=== PATIENT | female | born 1975 | race Caucasian/White ===

== ENCOUNTER → 2022-01-06 10:24 | Outpatient (CLI) | payer BC, SELFPAY ==
--- NOTE | ~2022-01-06 | XR_ITS ---
XR hand RT min 3V DATE: 01/06/2022 10:42 INDICATION: Third metacarpal and third digit intermittent chest pain for weeks TECHNIQUE: 3 views COMPARISON: None FINDINGS: No fracture or dislocation, periosteal reaction or bone destruction, erosive change or sandeep drocalcinosis. Joint spaces are relatively well preserved. IMPRESSION: Negative Reviewed, dictated and finalized at location A. IMPRESSION: Negative
== END ==
PROVIDERS: PCP Physician Assistant; Visit Provider Physician Assistant
DX: M79.641 Pain in right hand (principal)
CPT/HCPCS: 73130

== ENCOUNTER 2023-10-03 00:57 | Day surgery (SDC) | payer BC, SELFPAY ==
[2023-09-23 11:40] VITALS: BMI 30.7
--- NOTE | 2023-09-23 11:46 | PC.NURSE ---
Report to the Outpatient Waiting Room, entrance under the green pavilion located off [facility], at time 0630 on date 10/03/23. Planned Procedure Time: 0830. Time changes happen often and if your time is changed the preop area will call you the afternoon before. - You and your visitor will be asked to self-screen and do not enter if you have any COVID symptoms. - A mask is optional within the hospital at this time. Patients may have clear liquids (water, carbonated beverages, clear teas, apple juice) until 3 hours prior to surgery with a maximum of 20 ounces. - No food from midnight until time of surgery Take the following medications with a SIP of water the morning of surgery: NONE DO NOT STOP ANY OF YOUR OTHER PRESCRIPTION MEDICATIONS PRIOR TO SURGERY ?EXCEPT THE FOLLOWING Medications to discontinue per physician: N/A Date to take last dose: N/A Please no make-up, nail kinyarwanda, hairspray, perfume, deodorant, or body powder the day of surgery. No jewelry (including any body piercings) or valuables the day of surgery, leave them at home. Please take a shower or bath the night before, or the morning of, surgery with an antibacterial soap. Wear comfortable, loose fitting clothing. - Jewelry must be removed prior to entering the operating room. Rings and piercings that are not removed may be cut off. - The hospital will not accept responsibility for valuables. - Please leave all valuables, including medications, at home the day of surgery. If you are going home after surgery, a licensed driver education instructor must drive you home. - NO public transportation without another adult if you receive anesthesia. - We recommend that an adult stay with you for 24 hours following discharge. - We also recommend that you do not drive, make important decision, drink alcoholic beverages, or take any drugs that were not prescribed by your health care provider for at least 24 hours after your discharge time. Follow any additional instructions given to you from your surgeon. If you or anyone in your household have experienced Covid symptoms in the past week, please notify your surgeon or the nurse liaison at the phone number below for possible testing. Telephone instructions given to PT - DEBRA PATTERSON and asked if any additional questions and then verbalized understanding. Patient advised to call surgeon office or pre surgery nurse liaison [phone] if any additional questions.
--- NOTE | 2023-09-28 13:41 | PM.IMHP ---
H&P: HPI History of Present Illness Date/Time: 09/28/23 13:41 Chief Complaint: Triggering right 3rd finger. She has had previous release done elsewhere. Narrative: Patient has catching locking and pain right 3rd finger. She has had release done elsewhere. I have told her is no guarantee I can completely get rid of the catching however I am get reasonable to look in release the A1 edin to make sure there is nothing else causing her problems. Review of Systems Musculoskeletal: Musculoskeletal: Reports arthralgias and Reports joint swelling PMF Past Medical History Medical History (Updated 08/31/23 @ 10:28 by Reece Arrington MD) PCOS (polycystic ovarian syndrome) Surgical History Surgical History (Updated 08/31/23 @ 09:56 by Olivia Wells CMA) History of cholecystectomy History of ear surgery History of hand surgery right middle finger trigger release- 07/2022 Family History Family History (Updated 08/31/23 @ 09:57 by Olivia Wells CMA) Other Cancer Diabetes mellitus Kidney disease Social History Social History (Updated 08/31/23 @ 09:57 by Olivia Wells CMA) Smoking status: Never smoker Alcohol intake: current Drinks per week: 2 Alcohol use details: socially Substance use: never Substance use type: does not use Do You Feel Safe in your Home?: Yes Lack of Transportation: No Lack of Food: Never True Current Housing: I Have Housing Concerned About Future Housing: No Difficulty Paying Gas/Electric Bills: No Difficulty Paying for Meds: No Currently Unemployed: No Education: High School Diploma/GED Difficulty w/ Childcare or Family Care: No Living arrangements: with family Occupation/Education: occupation 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 The is well-healed surgical incision. Despite the fact she has had surgery she appears to recurrence of her trigger finger. Const: General: no acute distress Eyes: General: appearance normal, both eyes and all related structures Neck: Neck: supple Resp: Effort & Inspection: normal respiratory effort Cardio: Rate: regular rate Rhythm: regular rhythm Assessment and Plan Assessment and plan (1) Trigger finger, right middle finger: Code(s): M65.331 - Trigger finger, right middle finger Status: Acute Assessment and Plan: Patient has catching locking right 3rd finger. She has had a previous release. I told her with the previous release is no guarantee she will get better with surgery. She is well aware this would like to see if anything can be done. I told her mother to take a look and release it. If it does get better she probably have to live with what she has. I discussed this risks benefits limitations and alternatives in detail.
[2023-10-03] MEDS: ACETAMINOPHEN 500 MG TABLET 1000 MG PO (06:32)
[2023-10-03] MEDS: KETOROLAC 15 MG/ML VIAL (*BKC) IV PUSH (06:33)
[2023-10-03 06:42] VITALS: BP 134/55; PULSE 74; RESP 16; TEMP 36.3; O2SAT 100; BMI 30.2
[2023-10-03] MEDS: LACTATED RINGERS 1,000 ML 30 ML IV CONT (06:56)
--- NOTE | 2023-10-03 07:16 | P.PNAN_ITS ---
Anes - Initial Pre Proc Eval Procedure: Operation Date: 10/03/23 07:30 Proposed Procedures p Right third Trigger Finger Release - Reece Arrington MD Date/Time: 10/03/23 07:16 Surgeon: Reece Arrington MD Pre Op Diagnosis: Rt Trigger Middle Finger Patient Data Age: 48 Gender: F Height: 1.7 m Weight: 87.45 kg Last Vital Signs Temp 36.3 C L 10/03/23 06:42 Pulse 74 10/03/23 06:42 Resp 16 10/03/23 06:42 BP 134/55 L 10/03/23 06:42 Pulse Ox 100 10/03/23 06:42 O2 Del Method Room Air 10/03/23 06:42 Allergies Allergy/AdvReac Type Severity Reaction Status Date / Time Sulfa (Sulfonamide Allergy Mild HIVES Verified 09/23/23 11:39 Antibiotics) Home Medications Medication Instructions Recorded Confirmed Type estradiol 1 mg tablet 1 mg PO DAILY 08/31/23 10/03/23 History medroxyprogesterone 150 mg/mL 150 mg IM [id number] 09/23/23 10/03/23 History intramuscular syringe Patient hx anesthesia problems: none Family hx anesthesia problems: none Results Review: All pre-operative results and documents have been reviewed as part of the pre- operative evaluation. [facility]LY [facility] Past Medical History Medical History (Updated 10/03/23 @ 07:16 by Roberto Andrew MD) Obesity PCOS (polycystic ovarian syndrome) Surgical History Surgical History History of cholecystectomy History of ear surgery History of hand surgery right middle finger trigger release- 07/2022 Family History Family History Other Cancer Diabetes mellitus Kidney disease Social History Social History Smoking status: Never smoker Alcohol intake: current Drinks per week: 2 Alcohol use details: socially Substance use: never Substance use type: does not use Do You Feel Safe in your Home?: Yes Lack of Transportation: No Lack of Food: Never True Current Housing: I Have Housing Concerned About Future Housing: No Difficulty Paying Gas/Electric Bills: No Difficulty Paying for Meds: No Currently Unemployed: No Education: High School Diploma/GED Difficulty w/ Childcare or Family Care: No Living arrangements: with family Occupation/Education: occupation 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 Informed Consent: The patient's anesthetic plan and its attendant risks and benefits were discussed with the patient/family/POA. Questions were solicited and answers provided to the satisfaction of the patient/family/POA.
--- NOTE | 2023-10-03 08:38 | WPDHPUPDATE1 ---
History and Physical Update Update Date/Time: 10/03/23 08:38 History and Physical has been reviewed, including an updated exam of the patient. There are NO changes in the patient's condition. Risks, benefits, and alternatives have been discussed and questions answered. Patient agrees to proceed with procedure.
[2023-10-03] MEDS: ceFAZolin 2 GM/D5W 50 ML 2 GM/50 ML BAG IVPB (08:43)
[2023-10-03] MEDS: LIDOCAINE HCL 1% LOCAL INJ 20 ML VIAL INFILTRATE (09:01)
--- NOTE | 2023-10-03 09:13 | W.PM.PROC2 ---
Procedure Note - Detailed Date of Procedure 10/03/23 Pre-op Diagnosis Rt Trigger Middle Finger Post-op Diagnosis Same Procedure Performed Release A1 Edin Surgeon Reece Arrington MD Anesthesia General Description of Procedure Patient brought to operating room 9. General anesthetic was administered. Local infiltrate placed along the line of intended incision after sterile prep and drape. Dissection carried down through the skin and then bluntly dissected to the A1 edin and tendon. There were few bands left restricting the excursion of the A1 edin these were released under direct vision this point I pulled the tendon up and complete release was obtained. I found no further triggering of the finger. During the case the neurovascular bundles were carefully protected. Then proceeded with irrigation and hemostasis and closed with 3-0 Prolene. Sterile dressing applied patient tolerated procedure well. Packing No Pathology None sent Complications No immediate complications [facility] [place] Billing Surgery - Charge Forward: Surgery Billing (Right 3rd Trigger Finger [id number])
[2023-10-03 09:21] VITALS: BP 106/47; PULSE 79; RESP 16; O2SAT 96
[2023-10-03 09:50] VITALS: BP 108/57; PULSE 67; RESP 16; O2SAT 97
[2023-10-03] MEDS: oxyCODONE HCL (*CRX) 5 MG TAB IR PO (10:08)
[2023-10-03 10:20] VITALS: BP 116/73; PULSE 66; RESP 16
[2023-10-03 10:35] VITALS: BP 110/60; PULSE 72; RESP 16
== END 2023-10-03 10:50 | disposition home or self-care (01) ==
PROVIDERS: Visit Provider Orthopaedic Surgery
PROC: (CPT 26055; principal; 2023-10-03 07:30)
DX: M65.331 Trigger finger, right middle finger (principal); E28.2 Polycystic ovarian syndrome; E66.9 Obesity, unspecified; Z68.30 Body mass index [BMI] 30.0-30.9, adult; Z90.49 Acquired absence of other specified parts of digestive tract; Z98.890 Other specified postprocedural states; Z80.9 Family history of malignant neoplasm, unspecified
CPT/HCPCS: 26055; A9270; J0690; J1885; J2250; J2405; J2704; J3010; J7120

== ENCOUNTER 2024-01-19 08:00 | Outpatient (RCR) | payer BC, SELFPAY ==
--- NOTE | 2023-10-27 09:12 | OTOPEVAL1 ---
Assessment and note entered by Thomas Maya, JULIUS/Natasha, GIACOMO Evaluation Information 10/27/23 Assessment Status Evaluation Diagnosis Trigger finger, right middle finger Subjective Information s/p release 10/03/23. This is her second release. The first was done Jul 2022. She reports residual stiffness, difficulties making a fist and fully extending the finger. 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 She reports she tries to use the finger as much as possible. Intermittent pain, describes surgery site tenderness , on/off inflammation which is more uncomfortable than painful. Assessment OT Clinical Summary Patient referred to OT s/p right middle finger trigger finger release. She presents with residual tenderness, stiffness, and weakness that restricts return to gripping activities during ADLs. 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 Plan of Care Interventions Therapeutic Exercise,Manual Therapy,Therapeutic Activities,Hot Pack/Cold Pack,Ultrasound,Paraffin OT Services Indicated Yes Treatment Frequency and 1x/week for 6 weeks Duration These treatments will address the objective and functional deficits as defined above. The patient will be advanced safely and appropriately in order for the patient to progress towards his/her prior level of function. Additional exercises will be introduced and as well as a comprehensive home exercise program upon discharge, if needed, ?to ensure carryover of functional gains achieved in the clinic. This treatment plan has been reviewed and agreement upon by the patient.
--- NOTE | 2023-10-27 09:12 | OPREHPOC ---
Outpatient Therapy Plan of Care This is a Multidisciplinary Plan of Care that may contain components documented by all disciplines (PT, OT, and ST.) OT Problem 1 OT Problem #1 Knowledge Deficit OT Goal 1 Goal 1. Patient to be independent with instructed materials. Target Visit 6 OT Problem 2 OT Problem #2 Impaired Range of Motion OT Goal 1 Goal 1. Patient to increase functional ROM of the right hand as demonstrated by improved hook fist, measuring <1 cm gap between the middle finger tip and the DPC. OT Problem 3 OT Problem #3 Impaired Strength OT Goal 1 Goal 1. Patient to be able to complete putty HEP with at least yellow putty x5 minutes without reports of pain or clicking . Target Visit 6
--- NOTE | 2023-11-07 10:26 | PCOTNOTE ---
Patient did not show up for scheduled appointment this date. Called patient who reports she forgot about her appointment.
--- NOTE | 2023-11-24 15:59 | OTOPPROG ---
Assessment and note entered by Thomas Maya, JULIUS/Natasha, CHT Progress Update 11/24/23 Diagnosis Trigger finger, right middle finger Onset s/p release 10/03/23 Subjective Information Patient reports feeling less tender through her palm. Reports her hand is more flexible, but that she continues to have residual tightness and swelling that restricts return to full motion. She continues to have crunchy feeling in the finger when making a fist. Assessment OT Clinical Summary Patient referred to OT s/p right middle finger trigger finger release. She is making progress with therapy with improved ROM, reduced pain/ tenderness, and we have been able to progress to some corrosion prevention metal sprayer and pinch strengthening. 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 Plan of Care Interventions Therapeutic Exercise,Manual Therapy,Therapeutic Activities,Hot Pack/Cold Pack,Ultrasound,Paraffin OT Services Indicated Yes Treatment Frequency and 1x/week for 4 visits Duration These treatments will address the objective and functional deficits as defined above. The patient will be advanced safely and appropriately in order for the patient to progress towards his/her prior level of function. Additional exercises will be introduced and as well as a comprehensive home exercise program upon discharge, if needed, ?to ensure carryover of functional gains achieved in the clinic. This treatment plan has been reviewed and agreement upon by the patient.
--- NOTE | 2023-11-24 16:00 | OPREHPOC ---
Outpatient Therapy Plan of Care This is a Multidisciplinary Plan of Care that may contain components documented by all disciplines (PT, OT, and ST.) OT Problem 1 OT Problem #1 Knowledge Deficit OT Goal 1 Goal 1. Patient to be independent with instructed materials. ---OT POC UPDATE 11/24/23--- 1. Met, continue as HEP is progressed Target Visit 9 OT Problem 2 OT Problem #2 Impaired Range of Motion OT Goal 1 Goal 1. Patient to increase functional ROM of the right hand as demonstrated by improved hook fist, measuring <1 cm gap between the middle finger tip and the DPC. ---OT POC UPDATE 11/24/23--- 1. Not met, continue Target Visit 9 OT Problem 3 OT Problem #3 Impaired Strength OT Goal 1 Goal 1. Patient to be able to complete putty HEP with at least yellow putty x5 minutes without reports of pain or clicking . ---OT POC UPDATE 11/24/23--- 1. 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 Target Visit 9
--- NOTE | 2023-12-26 15:02 | OTOPPROG ---
Assessment and note entered by Thomas Maya, JULIUS/Natasha, CHT Progress Update 12/26/23 Diagnosis Trigger finger, right middle finger Onset s/p release 10/03/23 Subjective Information Patient reports no longer feels tender through her palm. States her middle finger PIP joint feels tender. Reports her hand is more flexible, noting her ability to now make a fist. Reports in the morning the finger is very stiff and it takes a while for her to be able to flex it. She continues to have crunchy feeling in the finger when making a fist. States her strength has improved but she continues to favor the left hand for tasks such as opening jars as the right hand is unable to do that yet. Composite fist returned to functional limits. Hook fist continues to be limited, measuring 2 cm gap between the finger tip and DPC. Floor Scraper strength improved from 36 to 55 lbs. Assessment OT Clinical Summary Patient referred to OT s/p right middle finger trigger finger release. She is making progress with therapy with improved ROM, reduced pain/ tenderness, and improved asian art curator strength. She continues to have residual scar tissue and stiffness that responds well to paraffin and US in the clinic. 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 Plan of Care Interventions Therapeutic Exercise,Manual Therapy,Therapeutic Activities,Hot Pack/Cold Pack,Ultrasound,Paraffin OT Services Indicated Yes Treatment Frequency and 1x/week for 4 visits Duration These treatments will address the objective and functional deficits as defined above. The patient will be advanced safely and appropriately in order for the patient to progress towards his/her prior level of function. Additional exercises will be introduced and as well as a comprehensive home exercise program upon discharge, if needed, ?to ensure carryover of functional gains achieved in the clinic. This treatment plan has been reviewed and agreement upon by the patient.
--- NOTE | 2024-01-26 10:51 | PCOTNOTE ---
This treatment is being continued on visit number [id number]. Please see documentation on both accounts to view progress. Completed interventions, outcomes, and problems have been marked as Inactive to facilitate the copying of the Care plan routine for recurring accounts.
== END 2024-01-23 11:52 | disposition home or self-care (01) ==
LOC: ANHOT 08:00
PROVIDERS: Visit Provider Orthopaedic Surgery
DX: M65.331 Trigger finger, right middle finger (principal)
CPT/HCPCS: 97018; 97035; 97110; 97140; 97165; 99199

== ENCOUNTER 2024-03-09 09:00 | Outpatient (RCR) | payer BC, SELFPAY ==
--- NOTE | 2024-01-26 10:52 | PCOTNOTE ---
The treatment documented on this account is a continuation of the treatment documented on visit number [id number]. Please see documentation on both accounts to view progress. The Plan of Care has been transitioned and updated within the new V#. I have addressed and agree with the discipline specific Problems, Interventions, and Goals for the current certification period. Completed interventions, outcomes, and problems have been marked as Inactive to facilitate the copying of the Care plan routine for recurring accounts.
--- NOTE | 2024-01-26 10:55 | OTOPPROG ---
Assessment and note entered by Thomas Maya, JULIUS/Natasha, CHT Progress Update 01/26/24 Assessment Status Progress Diagnosis Trigger finger, right middle finger Onset s/p release 10/03/23 Subjective Information Patient reports feeling like her mobility is about the same as a month ago. She reports the finger is very stiff when she wakes up in the morning and it becomes more mobile after a hot shower. She continues to report tenderness through the PIP joint with range of motion. Feels like she can make a tighter fist and that her strength is slightly better. Functionally she reports she continues to favor the left hand due to weakness. Composite fist returned to functional limits. Hook fist continues to be limited, measuring 1.5 cm gap between the finger tip and DPC. Funeral Home Location Manager strength improved from 55 to 64 lbs. Assessment OT Clinical Summary Patient referred to OT s/p right middle finger trigger finger release. She is making progress with therapy with improved ROM, reduced pain/ tenderness, and improved coil tier strength. She continues to have residual scar tissue and stiffness that responds well to paraffin and US in the clinic. Continued skilled OT indicated for use of modalities, manual therapy, therapeutic exercise, and HEP progression to facilitate return of functional coil tier on the right hand. Plan of Care Interventions Therapeutic Exercise,Ultrasound,Paraffin,Manual Therapy,Therapeutic Activities,Hot Pack/Cold Pack OT Services Indicated Yes Treatment Frequency and 1x/week for 5 visits Duration These treatments will address the objective and functional deficits as defined above. The patient will be advanced safely and appropriately in order for the patient to progress towards his/her prior level of function. Additional exercises will be introduced and as well as a comprehensive home exercise program upon discharge, if needed, ?to ensure carryover of functional gains achieved in the clinic. This treatment plan has been reviewed and agreement upon by the patient.
--- NOTE | 2024-01-26 10:57 | OPREHPOC ---
Outpatient Therapy Plan of Care This is a Multidisciplinary Plan of Care that may contain components documented by all disciplines (PT, OT, and ST.) OT Problem 1 OT Problem #1 Knowledge Deficit OT Goal 1 Goal 1. Patient to be independent with instructed materials. ---OT POC UPDATE 11/24/23--- 1. Met, continue as HEP is progressed ---OT POC UPDATE 12/26/23-- 1. Met, continue as HEP is progressed ---OT POC UPDATE 01/26/24--- 1. Met, continue as HEP is progressed Target Visit 18 OT Problem 2 OT Problem #2 Impaired Range of Motion OT Goal 1 Goal 1. Patient to increase functional ROM of the right hand as demonstrated by improved hook fist, measuring <1 cm gap between the middle finger tip and the DPC. ---OT POC UPDATE 11/24/23--- 1. Not met, continue ---OT POC UPDATE 12/26/23-- 1. Not met, continue ---OT POC UPDATE 01/26/24--- 1. Progressing, continue Target Visit 18 OT Problem 3 OT Problem #3 Impaired Strength OT Goal 1 Goal 1. Patient to be able to complete putty HEP with at least yellow putty x5 minutes without reports of pain or clicking . ---OT POC UPDATE 11/24/23--- 1. 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 ---OT POC UPDATE 12/26/23-- 1. Met ---OT POC UPDATE 01/26/24--- 1. Met, upgrade to 74 lbs Target Visit 18
--- NOTE | 2024-03-09 09:57 | OTOPDC ---
Assessment and note entered by Thomas Maya, JULIUS/Natasha, CHT OT Discharge Summary 03/09/24 Assessment Status Discharge Diagnosis Trigger finger, right middle finger Onset s/p release 10/03/23 Subjective Information Patient reports feeling like her mobility is about the same as a month ago. Stating she has good days and bad days . She reports the finger is very stiff when she wakes up in the morning and it becomes more mobile after a hot shower. She continues to report tenderness through the PIP joint with range of motion. Feels like she can make a tighter fist and that her strength is slightly better. Functionally she reports she continues to favor the left hand due to weakness. Composite fist returned to functional limits. On bad days she is unable to make a fist due to stiffness. Hook fist continues to be limited, measuring 1.5 cm gap between the finger tip and DPC. Detail Sergeant strength remained WFL at 61 lbs. Reported Pain Level Pain Score 0: Self Report Additional Pain Score Comments No pain at rest. No pain with pinching activities. 2/10 pain with gripping activities. Assessment OT Clinical Summary Patient referred to OT s/p right middle finger trigger finger release. She continues to demonstrate residual stiffness and weakness of the right hand. She continues to have catching/ popping with finger flexion. Unfortunately at this time she is reaching a progress plateau with therapy. Reviewed HEP. Recommending she continues her HEP, which includes tendon glides, passive stretching, and strengthening with putty. No further skilled OT indicated at this time. Plan of Care OT Services Indicated No
== END 2024-03-09 13:39 | disposition home or self-care (01) ==
LOC: ANHOT 09:00
PROVIDERS: Visit Provider Orthopaedic Surgery
DX: M65.331 Trigger finger, right middle finger (principal)
CPT/HCPCS: 97018; 97035; 97110; 97140; 97165

== ENCOUNTER → 2025-01-04 14:58 | Outpatient (CLI) | payer BC, SELFPAY ==
--- NOTE | ~2025-01-04 | XR_ITS ---
CHEST RADIOGRAPH, PA AND LATERAL CLINICAL HISTORY: CHEST PAIN . COMPARISON: None available TECHNIQUE: PA and lateral views of the chest. FINDINGS The cardiomediastinal silhouette is unremarkable. The lungs are clear. IMPRESSION: No focal infiltrate or effusion. Reviewed, dictated and finalized at location A.
--- NOTE | ~2025-01-04 | XR_ITS ---
XR cervical spine min 6V Ordering provider: Michael Hunt, DC History: . CHEST PAIN, CERVICAL PAIN . Comparison: None. FINDINGS: VERTEBRAL BODIES: Normal height and alignment. No visible fracture or subluxation. The dens is intact . DISK SPACES: Well maintained. Narrowing of the intervertebral foramina is seen which may be positional. PARASPINOUS SOFT TISSUES: No prevertebral soft tissue swelling. IMPRESSION: No acute osseous abnormality cervical spine. Reviewed, dictated and finalized at location A.
== END ==
LOC: EXPCRAD 15:03
PROVIDERS: PCP Chiropractor; Visit Provider Chiropractor
DX: R07.9 Chest pain, unspecified (principal); M54.2 Cervicalgia
CPT/HCPCS: 71046; 72052